=== PATIENT | female | born 1970 | race Caucasian/White ===

== ENCOUNTER 2016-08-08 09:08 | Observation (INO) | payer MEDICARE ==
[~2016-08-08] VITALS: Ht 175.3 cm; Wt 118.8 kg
[2016-08-08 10:30] LABS: HEMOGLOBIN 11.4 gm/dl (12.3-15.3); RED BLOOD COUNT 4.19 M/UL (4.00-5.10); WHITE BLOOD COUNT 5.5 K/UL (4.5-11.0)
[2016-08-08 10:33] LABS: BUN/CREATININE RATIO 10 (0-10)
[2016-08-08] MEDS ORDERED: PRAVASTATIN SOD20 MG PO (18:39)
[2016-08-08] MEDS ORDERED: ZESTORETIC 10-1 EACH PO (18:39)
[2016-08-08] MEDS ORDERED: ADVAIR 250-501 EACH INH (18:42)
[2016-08-08] MEDS ORDERED: VITAMIN D31000 UNI1 PO (18:43)
[2016-08-08] MEDS ORDERED: PROVENTIL HFA 61 INH INH (18:43)
[2016-08-08] MEDS ORDERED: LANTUS100 UNIT/1 SQ ×2 (18:45)
[2016-08-08] MEDS ORDERED: PLAVIX 75 MG TA75 MG PO (18:46)
[2016-08-08] MEDS ORDERED: HYDROXYZINE HCL25 MG PO (18:46)
[2016-08-08] MEDS ORDERED: HUMALOG100 UNIT/1 SQ (18:46)
[2016-08-08] MEDS ORDERED: EFFEXOR XR150 MG PO (18:48)
[2016-08-09 05:11] LABS: HEMOGLOBIN 10.9 gm/dl (12.3-15.3); RED BLOOD COUNT 3.98 M/UL (4.00-5.10); WHITE BLOOD COUNT 4.4 K/UL (4.5-11.0)
[2016-08-09 05:14] LABS: BUN/CREATININE RATIO 14 (0-10)
[2016-08-09] MEDS ORDERED: PROTONIX40 MG PO (18:04)
[2016-08-09] MEDS ORDERED: ASPIR-LOW81 MG PO (18:07)
== END 2016-08-09 19:28 | disposition home or self-care (01) ==
LOC: ER1 09:08 → MED SURG 4 13:50 → ZEROF 13:50 → MED SURG 4 13:50
PROVIDERS: Physician Assistant; ADMIT Internal Medicine
DX: R07.89 Other chest pain (principal); K80.20 Calculus of gallbladder without cholecystitis without obstruction; D61.818 Other pancytopenia; R16.1 Splenomegaly, not elsewhere classified; E11.9 Type 2 diabetes mellitus without complications; I10 Essential (primary) hypertension; E78.5 Hyperlipidemia, unspecified; G89.29 Other chronic pain; F17.210 Nicotine dependence, cigarettes, uncomplicated; Z88.0 Allergy status to penicillin; Z88.5 Allergy status to narcotic agent; Z88.8 Allergy status to other drugs, medicaments and biological substances; Z91.040 Latex allergy status; Z98.890 Other specified postprocedural states
CPT/HCPCS: ECHO; 36415; 71010; 76705; 78452; 80053; 80061; 82150; 82550; 82553; 82607; 82746; 82962; 83036; 83690; 83735; 83874; 84484; 85025; 85027; 85379; 85610; 85730; 93005; 93017; 93306; 96374; 96375; 96376; 99285; A9502; G0378; J2060; J2405; J2785; J7050; Q9963

== ENCOUNTER 2016-08-30 15:39 | Emergency (ER) | payer MEDICARE ==
[~2016-08-30 15:39] MED LIST: ADVAIR 250-501 EACH INH; ASPIR-LOW81 MG PO; EFFEXOR XR150 MG PO; HUMALOG100 UNIT/1 SQ; HYDROXYZINE HCL25 MG PO; LANTUS100 UNIT/1 SQ; PLAVIX 75 MG TA75 MG PO; PRAVASTATIN SOD20 MG PO; PROTONIX40 MG PO; PROVENTIL HFA 61 INH INH; VITAMIN D31000 UNI1 PO; ZESTORETIC 10-1 EACH PO
[2016-08-30 17:31] LABS: HEMOGLOBIN 12.6 gm/dl (12.3-15.3); RED BLOOD COUNT 4.51 M/UL (4.00-5.10); WHITE BLOOD COUNT 5.3 K/UL (4.5-11.0)
[2016-08-30 17:40] LABS: BUN/CREATININE RATIO 12 (0-10)
== END 2016-08-30 19:20 | disposition home or self-care (01) ==
LOC: ER1 15:39
PROVIDERS: Specialist/Technologist Athletic Trainer
DX: K74.60 Unspecified cirrhosis of liver (principal); E11.9 Type 2 diabetes mellitus without complications; I10 Essential (primary) hypertension; E78.5 Hyperlipidemia, unspecified; G89.29 Other chronic pain; M54.5 Low back pain; E78.00 Pure hypercholesterolemia, unspecified; F17.210 Nicotine dependence, cigarettes, uncomplicated; E87.6 Hypokalemia; K80.20 Calculus of gallbladder without cholecystitis without obstruction; D69.6 Thrombocytopenia, unspecified; Z88.0 Allergy status to penicillin; Z88.5 Allergy status to narcotic agent; Z91.040 Latex allergy status; Z88.8 Allergy status to other drugs, medicaments and biological substances; Z91.030 Bee allergy status; Z79.4 Long term (current) use of insulin
CPT/HCPCS: 36415; 76705; 80053; 83690; 85025; 93005; 96361; 96374; 96375; 99284; C9113; J2405